=== PATIENT | female | born 1995 | race Caucasian/White ===

== ENCOUNTER → 2021-09-16 13:03 | Outpatient (CLI) | payer OTHER, MEDICAID, SELFPAY ==
[2021-09-16 14:26] LABS: COVID19 -Nasal RAPID POSITIVE (Negative)
== END ==
PROVIDERS: PCP Internal Medicine; Visit Provider Surgery
DX: Z20.822 Contact with and (suspected) exposure to COVID-19 (principal); U07.1 COVID-19; Z01.812 Encounter for preprocedural laboratory examination
CPT/HCPCS: 87635; C9803

== ENCOUNTER → 2021-10-21 09:43 | Outpatient (CLI) | payer OTHER, MEDICAID, SELFPAY ==
[2021-10-21 10:42] LABS: COVID19 -Nasal RAPID Negative (Negative)
== END ==
PROVIDERS: PCP Internal Medicine; Visit Provider Surgery
DX: Z20.822 Contact with and (suspected) exposure to COVID-19 (principal); Z01.812 Encounter for preprocedural laboratory examination
CPT/HCPCS: 87635; C9803

== ENCOUNTER 2021-10-22 13:54 | Day surgery (SDC) | payer OTHER, MEDICAID, SELFPAY ==
[2021-10-14 12:32] VITALS: BMI 21.9
[2021-10-22] VITALS (8 sets, daily range): BP systolic 101–131; BP diastolic 60–84; PULSE 75–116; RESP 12–18; TEMP 36.6–37.3; O2SAT 96–100; BMI 22.4
--- NOTE | 2021-10-22 | PATH_ITS ---
[facility] Accession Number: [id number] . 01 Material submitted: . hemorrhoids - HEMORRHOID . 01 Diagnosis: Hemorrhoid, Hemorrhoidectomy: Portions of hemorrhoid times three with focal thrombosis. Negative for dysplasia or malignancy. [facility] 10/27/2021 1420 Local . 01 Electronically signed: . Dori Meier MD, Pathologist NPI- [id number] . 01 Gross description: . HEMORRHOID: Received in formalin are 3 fragments of rubio soft tissue measuring 2.0 x 1.5 x 0.7 cm in aggregate. Tissue is inked. Specimen is sectioned and submitted in advertising sales representative sections in 1 cassette. /LOREN 10/23/2021 1845 Local . 01 Pathologist provided ICD-10: K64.9 . 01 CPT . 958145 Specimen Comment: A courtesy copy of this report has been sent to [phone] Performed at: 01 [facility] [address] [place] [address], [place], [place] [id number] MD Manuel Mahajan MD Phone: [phone]
--- NOTE | 2021-10-22 11:40 | SUR.PREOP ---
Called and verified pt had Two vaccines for covid 19 and 1 booster.
[2021-10-22] MEDS: SCOPOLAMINE 1 PATCH TOP (14:41)
[2021-10-22] MEDS: GABAPENTIN 300 MG CAPSULE PO (14:44)
[2021-10-22] MEDS: LACTATED RINGERS 1,000 ML 100 ML IV (14:46)
--- NOTE | 2021-10-22 15:26 | PM.HP.1 ---
History of Present Illness History of Present Illness Date Patient Seen: 10/22/21 Time Patient Seen: 15:26 Chief complaint: [facility] Narrative: 26 y.o woman here for excisional hemorrhoidectomy. Feeling well today without complaint. Patient History Medical History COVID-19 virus infection (09/16/21) Surgical History [place] teeth extracted Family & Social History Family History Grandmother Breast cancer Social History: household members spouse lives independently Yes Tobacco & Substance use: Smoking Status Never smoker alcohol intake current alcohol intake frequency a few times a week Meds Home Medications and Allergies Home Medications Medication Instructions Recorded Confirmed Type docusate sodium 100 mg capsule 200 mg PO BID #60 cap 10/22/21 Rx (Colace) oxycodone 5 mg tablet 5 mg PO Q6H PRN #40 tab 10/22/21 Rx psyllium husk 3.4 gram/5.4 gram 1 tbsp PO BID #660 g 10/22/21 Rx oral powder (Metamucil) Allergies Allergy/AdvReac Type Severity Reaction Status Date / Time No Known Drug Allergies Allergy Verified 10/22/21 14:21 Exam Vital Signs (past 8 hours): - 10/22/21 14:46 Temperature 99.2 F Pulse Rate 116 H Respiratory Rate 18 Blood Pressure 119/84 Pulse Oximetry 98 Oxygen Delivery Method Room Air Narrative Exam Narrative: Gen-Adult woman alert and oriented Chest-Non labored resp Ext-WWP Assessment & Plan Assessment & Plan narrative: 26 y.o woman here for excisional hemorrhoidectomy. Operative risks including bleeding, pain, reoccurence, incontinence, anal stenosis were discussed. Questions answered and she is in agreement with this plan. Time Spent With Patient Critical Care time: I spent a total of [] minutes of critical care time on this patient's care today; this time is exclusive of procedural time.
--- NOTE | 2021-10-22 15:39 | SUR.OPER ---
Supine on padded OR bed, head on pillow, arms secured on padded arm boards at <90 degrees abduction, legs uncrossed, safety belt at thigh, tape over blanket over lower legs.
--- NOTE | 2021-10-22 16:13 | SUR.OPER ---
Prone on padded OR bed, head in foam head support, gel chest rolls, gel pad under knees, pillow under lower legs, toes free of pressure, arms secured on padded arm boards at <90 degrees abduction. Safety belt at thigh.
[2021-10-22] MEDS: BUPIVACAINE 0.25% (PF) VIAL 30 ML INJ (16:15)
[2021-10-22] MEDS: BUPIVACAINE LIPOSOME 266 MG/20 ML VIAL INJ (16:15)
[2021-10-22] MEDS: DIBUCAINE 1% OINT 28 GM 1 APPLIC TOP (16:37)
--- NOTE | 2021-10-22 16:48 | PM.OP.1 ---
Operative Date/Time/Diagnoses Date of procedure: 10/22/21 Time of procedure: 16:48 Pre-op diagnosis: Hemorrhoids Post-op diagnosis: same Procedure & Clinicians Procedure: Excisional hemorrhoidectomy x2 columns Same procedure as scheduled: Yes Indications: Grade 3 internal hemorrhoids with external component Surgeon: Victoriano Mauricio Anesthesia Type: General Operative Notes Findings: Prolapsing internal hemorrhoids with external component. Left lateral right posterior columns Specimen(s): other (hemorrhoids) Estimated Blood Loss (mL): 20 Procedure in detail: The patient was brought to the operating room placed supine on the table. Bilateral lower extremity compression devices were applied. General anesthesia was induced and they were intubated with an endotracheal tube. They were then placed into prone position and appropriately padded. They were then prepped and draped in usual sterile fashion. Time-out was performed. Rectal block was performed by injecting 20 mL of Exparel into the intersphincteric groove. An internal examination of the anal canal was made. The right posterior and left lateral hemorrhoid pedicles freely prolapsed consistent with grade 3 with external component. Beginning with the left lateral pedicle it was grasped elevated and excised with electrocautery off the internal sphincter. The mucosal defect was then closed with a running 0 Vicyrl suture. Hemostasis was checked. The procedure was then repeated for the right posterior. The specimens were passed off the field. Wound was irrigated with saline. Gelfoam coated in Dibucaine ointment 1% was then placed into the anal canal. Sponge and instrument counts were correct at the end of the procedure. They emerged from anesthesia were extubated and transferred to the postoperative care unit in stable condition. Complications: none Post-operative Condition: stable Disposition: same day surgery
[2021-10-22] MEDS: OXYCODONE IR 5 MG TABLET PO (17:09)
== END 2021-10-22 17:51 | disposition home or self-care (01) ==
PROVIDERS: PCP Internal Medicine; Referring Provider Surgery; Visit Provider Surgery
PROC: (CPT 46260; principal; 2021-10-22 15:45)
DX: K64.2 Third degree hemorrhoids (principal)
CPT/HCPCS: 46260; 81025; 82962; C9290; J0330; J1100; J1885; J2250; J2405; J2704; J3010

== ENCOUNTER → 2024-05-30 13:07 | Outpatient (CLI) | payer OTHER, SELFPAY ==
--- NOTE | 2024-05-30 13:08 | DI.RAD.S_ITS ---
PROCEDURE: XR TOE RT MIN 2V INDICATIONS: Toe pain/injury -4th digit TECHNIQUE: 3 views of the 4th toe(s) acquired. COMPARISON: None. FINDINGS: Bones: No fractures or dislocations. No suspicious bony lesions. Soft tissues: No suspicious soft tissue densities. IMPRESSION: No visualized acute fracture or dislocation. However, if clinical concern and/or pain persist, short interval imaging followup in 7-10 days is recommended, as occult injury cannot be definitively excluded. Dictated by: Sonia Giles M.D. on 05/30/2024 at 13:41 Approved by: Sonia Giles M.D. on 05/30/2024 at 13:42
== END ==
PROVIDERS: PCP Internal Medicine; Referring Provider Physician Assistant Surgical; Visit Provider Physician Assistant Surgical
DX: M79.674 Pain in right toe(s) (principal)
CPT/HCPCS: 73660